=== PATIENT | female | born 1975 | race African-American/Black ===

== ENCOUNTER 2016-09-06 21:00 | Inpatient (IN) | payer MEDICAID ==
[~2016-09-06] VITALS: Ht 172.7 cm; Wt 96.6 kg
[2016-09-06 22:35] LABS: Basophils # (auto) 0.1 uL; Basophils % (auto) 0.6 % (0.0-2.0); Eosinophils # (auto) 0.1 uL; Eosinophils % (auto) 0.9 % (0.0-7.0); Hematocrit 34.7 % (36.0-46.0); Hemoglobin 11.7 g/dL (12.2-16.2); Lymphocytes # (auto) 2.8 uL; Lymphocytes % (auto) 31.4 % (10.0-50.0); Mean Corpuscular Hemoglobin 27.3 pg (28.0-32.0); Mean Corpuscular Hgb Conc. 33.6 g/dL (32.0-36.0); Mean Corpuscular Volume 81.3 fL (80.0-100.0); Mean Platelet Volume 8.2 fL (7.4-10.4); Monocytes # (auto) 0.6 uL; Monocytes % (auto) 6.3 % (0.0-12.0); Neutrophils # (auto) 5.4 uL; Neutrophils % (auto) 60.8 % (37.0-80.0); Platelet Count (auto) 279 10^3/uL (140-450); Red Cell Distribution Width 15.8 % (11.6-16.0); White Blood Cell 8.9 10^3/uL (4.4-10.8)
[2016-09-06 22:36] LABS: Urine Bilirubin Negative (Negative); Urine Blood Negative /uL (Negative); Urine Color Yellow (Yellow); Urine Glucose Normal (Normal); Urine Ketone Negative (Negative); Urine Nitrite Negative (Negative); Urine RBC 2 /hpf (0 - 4); Urine Squamous Epithelial Cell FEW /hpf (<5); Urine Urobilinogen Normal (Negative)
[2016-09-06 22:54] LABS: Albumin 3.3 g/dL (3.4-5.0); BUN/Creatinine Ratio 31.6; Bilirubin, Total 0.2 mg/dL (0.2-1.0); Calcium 8.6 mg/dL (8.5-10.1); Potassium 3.6 mmol/L (3.5-5.1); Total Protein 7.7 g/dL (6.4-8.2)
[2016-09-07] MEDS ORDERED: SODIUM CHLORIDE 0.9% 1,000 ML IV ONE (02:28)
[2016-09-07 02:55] LABS: INR 0.95 (0.9-1.15); Partial Thromboplastin Time 27.5 sec (22.64-33.71); Prothrombin Time 10.4 sec (9.37-12.3)
[2016-09-07] MEDS ORDERED: fentaNYL CITRATE 100 MCG/2 ML VL ONE (13:53)
[2016-09-07] MEDS ORDERED: ONDANSETRON HCL 4 MG/2 ML VIAL ONE ×3 (13:54→16:43)
[2016-09-07] MEDS ORDERED: MIDAZOLAM HCL 1MG/1ML-2 ML VIAL ONE (13:54)
[2016-09-07] MEDS ORDERED: GLYCOPYRROLATE 0.2 MG/ML 1ML VIAL ONE (13:54)
[2016-09-07] MEDS ORDERED: PROPOFOL 10 MG/ML 20 ML IV ONE (13:54)
[2016-09-07] MEDS ORDERED: DEXAMETHASONE SOD PHOS 10MG/1ML VIAL INJ ONE (13:54)
[2016-09-07] MEDS ORDERED: KETOROLAC TROMETH 60MG/2ML VIAL IM ONE (13:54)
[2016-09-07] MEDS ORDERED: ROCURONIUM 10MG/ML 10ML VIAL IV ONE ×3 (13:59→15:40)
[2016-09-07] MEDS ORDERED: ceFAZolin 1GM/50ML D5W 50 ML IV ONE (14:24)
[2016-09-07] MEDS ORDERED: ONDANSETRON HCL 4 MG/2 ML VIAL IV ONE (16:00)
[2016-09-07] MEDS ORDERED: HYDROmorphone HCL 2 MG/ML VL IM PRN (16:15)
[2016-09-07] MEDS ORDERED: RHO (D) IMMUNE GLOBULIN 300 MCG INJ IM PRN (16:15)
[2016-09-07] MEDS ORDERED: HYDROmorphone HCL 2 MG/ML VL ONE (16:41)
[2016-09-07] MEDS: HYDROmorphone HCL 2 MG/ML VL IV PRN ×2 (16:55→17:56)
[2016-09-07 17:26] VITALS: BP 96/52
[2016-09-07 17:36] VITALS: BP_SYST 101
[2016-09-07 20:00] VITALS: BP 96/58
[2016-09-07 21:59] VITALS: BP 96/58
[2016-09-08] MEDS: ONDANSETRON HCL 4 MG/2 ML VIAL IV PRN ×3 (04:58→14:38)
[2016-09-08] MEDS: HYDROmorphone HCL 2 MG/ML VL IV PRN ×2 (04:59→10:35)
[2016-09-08 05:00] VITALS: BP 98/56
[2016-09-08 07:33] LABS: Urine RBC None Seen /hpf (0 - 4)
[2016-09-08 07:47] LABS: Urine Bilirubin Negative (Negative); Urine Blood Negative /uL (Negative); Urine Color Yellow (Yellow); Urine Glucose Normal (Normal); Urine Ketone Negative (Negative); Urine Nitrite Negative (Negative); Urine Squamous Epithelial Cell FEW /hpf (<5); Urine Urobilinogen Normal (Negative)
[2016-09-08 08:00] VITALS: BP 117/60
[2016-09-08 09:00] VITALS: BP 117/60
[2016-09-08 12:27] VITALS: BP 111/63
== END 2016-09-08 15:41 | disposition home or self-care (01) | DRG 546 ==
LOC: ER 21:09 → WEST WING 21:10 → ER 09-07 14:36
PROVIDERS: ADMIT Internal Medicine; ATTEND Internal Medicine
PROC: 0UB04ZZ Excision of Right Ovary, Percutaneous Endoscopic Approach (ICD-10-PCS; 2016-09-07)
PROC: 0U9 Female Reproductive System, Drainage (ICD-10-PCS; 2016-09-07)
PROC: 0UB54ZZ Excision of Right Fallopian Tube, Percutaneous Endoscopic Approach (ICD-10-PCS; principal; 2016-09-07 14:08)
DX: O26.891 Other specified pregnancy related conditions, first trimester (principal); O00.90 Unspecified ectopic pregnancy without intrauterine pregnancy; D64.9 Anemia, unspecified; J45.909 Unspecified asthma, uncomplicated; Z90.49 Acquired absence of other specified parts of digestive tract; Z88.2 Allergy status to sulfonamides; Z90.89 Acquired absence of other organs; O99.011 Anemia complicating pregnancy, first trimester; O99.511 Diseases of the respiratory system complicating pregnancy, first trimester; Z3A.01 Less than 8 weeks gestation of pregnancy; N83.8 Other noninflammatory disorders of ovary, fallopian tube and broad ligament
CPT/HCPCS: 36415; 76801; 80053; 81001; 83690; 83735; 84702; 85025; 85610; 85730; 86850; 86900; 86901; 93005; 96360; J0690; J1100; J1885; J2250; J2405; J2704

== ENCOUNTER 2016-12-13 05:44 | Emergency (ER) | payer MEDICAID ==
[~2016-12-13] VITALS: Ht 172.7 cm; Wt 95.3 kg
[2016-12-13 06:09] VITALS: BP 101/60
[2016-12-13 07:25] LABS: Basophils # (auto) 0 uL; Basophils % (auto) 0.3 % (0.0-2.0); CONDITION Y; Eosinophils # (auto) 0.1 uL; Eosinophils % (auto) 1.2 % (0.0-7.0); Hematocrit 31.3 % (36.0-46.0); Hemoglobin 10.5 g/dL (12.2-16.2); Lymphocytes % (auto) 24.9 % (10.0-50.0); Mean Corpuscular Hemoglobin 27.8 pg (28.0-32.0); Mean Corpuscular Hgb Conc. 33.5 g/dL (32.0-36.0); Mean Corpuscular Volume 83.2 fL (80.0-100.0); Mean Platelet Volume 8.5 fL (7.4-10.4); Monocytes # (auto) 0.5 uL; Monocytes % (auto) 6.8 % (0.0-12.0); Neutrophils # (auto) 5.2 uL; Neutrophils % (auto) 66.8 % (37.0-80.0); Platelet Count (auto) 266 10^3/uL (140-450); Red Cell Distribution Width 14.3 % (11.6-16.0); White Blood Cell 7.9 10^3/uL (4.4-10.8)
[2016-12-13 07:26] LABS: Albumin 2.4 g/dL (3.4-5.0); Calcium 7.9 mg/dL (8.5-10.1); Potassium 3.5 mmol/L (3.5-5.1)
[2016-12-13 07:29] LABS: Bilirubin, Total 0.2 mg/dL (0.2-1.0); Total Protein 6.9 g/dL (6.4-8.2)
[2016-12-13] MEDS ORDERED: ACETAMINOPHEN 500 MG TAB PO ONE (09:45)
== END 2016-12-13 09:50 | disposition home or self-care (01) ==
LOC: ER 05:44
DX: O23.42 Unspecified infection of urinary tract in pregnancy, second trimester (principal); O26.892 Other specified pregnancy related conditions, second trimester; J45.909 Unspecified asthma, uncomplicated; Z3A.18 18 weeks gestation of pregnancy; Z88.1 Allergy status to other antibiotic agents
CPT/HCPCS: 36415; 76805; 80053; 83690; 83735; 84702; 85025

== ENCOUNTER 2017-01-14 18:57 | Emergency (ER) | payer MEDICAID ==
[~2017-01-14] VITALS: Ht 172.7 cm; Wt 94.8 kg
[2017-01-14 19:56] LABS: Basophils # (auto) 0 uL; Basophils % (auto) 0.5 % (0.0-2.0); Eosinophils # (auto) 0.1 uL; Hematocrit 32.3 % (36.0-46.0); Hemoglobin 10.6 g/dL (12.2-16.2); Lymphocytes # (auto) 2.9 uL; Lymphocytes % (auto) 29.2 % (10.0-50.0); Mean Corpuscular Hemoglobin 27.1 pg (28.0-32.0); Mean Corpuscular Volume 82.2 fL (80.0-100.0); Mean Platelet Volume 8.2 fL (6.9-10.8); Monocytes # (auto) 0.7 uL; Monocytes % (auto) 6.6 % (0.0-12.0); Neutrophils # (auto) 6.2 uL; Neutrophils % (auto) 62.7 % (37.0-80.0); Nucleated Red Blood Cells % 0.1 %; Platelet Count (auto) 227 10^3/uL (140-450); Red Cell Distribution Width 14.6 % (11.8-14.3); White Blood Cell 9.9 10^3/uL (4.4-10.8)
[2017-01-14 20:00] LABS: Albumin 2.6 g/dL (3.4-5.0); BUN/Creatinine Ratio 18.9; Bilirubin, Total 0.2 mg/dL (0.2-1.0); Potassium 3.4 mmol/L (3.5-5.1); Total Protein 7.2 g/dL (6.4-8.2)
[2017-01-14] MEDS ORDERED: ACETAMINOPHEN 325 MG TAB PO ONE (21:30)
[2017-01-15 00:55] VITALS: BP 112/68
== END 2017-01-15 02:47 | disposition home or self-care (01) ==
LOC: ER 19:03
DX: O9A.212 Injury, poisoning and certain other consequences of external causes complicating pregnancy, second trimester (principal); S33.5XXA Sprain of ligaments of lumbar spine, initial encounter; O26.892 Other specified pregnancy related conditions, second trimester; J45.909 Unspecified asthma, uncomplicated; M79.1 Myalgia; Z3A.25 25 weeks gestation of pregnancy; Z88.1 Allergy status to other antibiotic agents; W18.39XA Other fall on same level, initial encounter; Y93.89 Activity, other specified; Y92.89 Other specified places as the place of occurrence of the external cause; Y99.8 Other external cause status
CPT/HCPCS: 36415; 76805; 80053; 84702; 85025

== ENCOUNTER 2017-03-17 11:05 | Observation (INO) | payer MEDICAID ==
[~2017-03-17] VITALS: Ht 172.7 cm; Wt 98.4 kg
[2017-03-17] MEDS ORDERED: NIFEdipine 10 MG CAP PO ONE (13:00)
[2017-03-17] MEDS ORDERED: PREN-96 PO (14:47)
[2017-03-17] MEDS ORDERED: NIF10C PO (15:18)
== END 2017-03-17 16:00 | disposition home or self-care (01) | DRG 566 ==
LOC: LDRP 11:05
PROVIDERS: ADMIT Obstetrics & Gynecology; ATTEND Obstetrics & Gynecology
DX: O26.893 Other specified pregnancy related conditions, third trimester (principal); R51 Headache; R10.9 Unspecified abdominal pain; Z3A.32 32 weeks gestation of pregnancy
CPT/HCPCS: 59025; 81002; 96361; 96366; G0378

== ENCOUNTER 2017-03-19 16:00 | Observation (INO) | payer MEDICAID ==
[~2017-03-19 16:00] MED LIST: NIF10C PO; PREN-96 PO
== END 2017-03-19 17:05 | disposition home or self-care (01) | DRG 563 ==
LOC: LDRP 16:00
PROVIDERS: ADMIT Specialist; ATTEND Specialist
DX: O60.03 Preterm labor without delivery, third trimester (principal); O26.893 Other specified pregnancy related conditions, third trimester; R10.30 Lower abdominal pain, unspecified; Z3A.32 32 weeks gestation of pregnancy
CPT/HCPCS: 59025; 81002; G0378

== ENCOUNTER 2017-03-26 17:00 | Observation (INO) | payer MEDICAID, OTHER ==
[2017-03-26] MEDS ORDERED: TERBUTALINE SULFATE 1 MG/ML 1ML VIAL SC ONE (18:51)
== END 2017-03-26 22:54 | disposition home or self-care (01) | DRG 566 ==
LOC: LDRP 17:00 → EDUNIT# 17:00
PROVIDERS: ADMIT Obstetrics & Gynecology; ATTEND Obstetrics & Gynecology
DX: O26.893 Other specified pregnancy related conditions, third trimester (principal); Z3A.33 33 weeks gestation of pregnancy
CPT/HCPCS: 59025; 81002; 96372; G0378; J3105

== ENCOUNTER 2017-04-02 18:55 | Observation (INO) | payer MEDICAID ==
[2017-04-02] MEDS ORDERED: NIFEdipine 10 MG CAP ONE (19:16)
== END 2017-04-02 20:34 | disposition home or self-care (01) | DRG 566 ==
LOC: LDRP 18:55
PROVIDERS: ADMIT Specialist; ATTEND Specialist
DX: O26.93 Pregnancy related conditions, unspecified, third trimester (principal); Z3A.34 34 weeks gestation of pregnancy
CPT/HCPCS: 59025; 81002; G0378

== ENCOUNTER 2017-04-08 10:50 | Observation (INO) | payer MEDICAID | END 2017-04-08 11:40 | disposition home or self-care (01) | DRG 563 | LOC: LDRP 10:50 | PROVIDERS: ADMIT Specialist; ATTEND Specialist | DX: O60.03 Preterm labor without delivery, third trimester (principal); Z3A.35 35 weeks gestation of pregnancy | CPT/HCPCS: 59025; 81002; G0378 ==

== ENCOUNTER 2017-04-16 11:05 | Observation (INO) | payer MEDICAID | END 2017-04-16 11:50 | disposition home or self-care (01) | DRG 563 | LOC: LDRP 11:05 | PROVIDERS: ADMIT Specialist; ATTEND Specialist | DX: O60.03 Preterm labor without delivery, third trimester (principal); O26.893 Other specified pregnancy related conditions, third trimester; R10.9 Unspecified abdominal pain; M54.5 Low back pain; O09.523 Supervision of elderly multigravida, third trimester; Z3A.36 36 weeks gestation of pregnancy | CPT/HCPCS: 59025; 81002; G0378 ==

== ENCOUNTER 2017-04-23 10:50 | Observation (INO) | payer MEDICAID | END 2017-04-23 12:05 | disposition home or self-care (01) | DRG 566 | LOC: LDRP 10:50 | PROVIDERS: ADMIT Obstetrics & Gynecology; ATTEND Obstetrics & Gynecology | DX: O26.893 Other specified pregnancy related conditions, third trimester (principal); M54.5 Low back pain; R10.30 Lower abdominal pain, unspecified; Z3A.37 37 weeks gestation of pregnancy | CPT/HCPCS: 59025; 81002; G0378 ==

== ENCOUNTER 2017-04-30 11:30 | Observation (INO) | payer MEDICAID | END 2017-04-30 13:15 | disposition home or self-care (01) | DRG 566 | LOC: LDRP 11:30 | PROVIDERS: ADMIT Obstetrics & Gynecology; ATTEND Obstetrics & Gynecology | DX: O24.419 Gestational diabetes mellitus in pregnancy, unspecified control (principal); O62.9 Abnormality of forces of labor, unspecified; Z3A.38 38 weeks gestation of pregnancy | CPT/HCPCS: 59025; 81002; G0378; 96361; 96366 ==

== ENCOUNTER 2017-05-02 02:25 | Inpatient (IN) | payer MEDICAID ==
[~2017-05-02] VITALS: Ht 172.7 cm; Wt 96.8 kg
[2017-05-02] VITALS (11 sets, daily range): BP systolic 81–107; BP diastolic 45–60
[~2017-05-02 02:25] MED LIST changes: -NIF10C PO
[2017-05-02 03:18] LABS: Basophils # (auto) 0.1 uL; Eosinophils # (auto) 0.1 uL; Eosinophils % (auto) 0.8 % (0.0-7.0); Hemoglobin 9.6 g/dL (12.2-16.2); Lymphocytes # (auto) 2.5 uL; Mean Corpuscular Volume 79.4 fL (80.0-100.0); Monocytes # (auto) 0.6 uL; White Blood Cell 7.2 10^3/uL (4.4-10.8)
[2017-05-02 03:19] LABS: Basophils % (auto) 0.8 % (0.0-2.0); Hematocrit 29.2 % (36.0-46.0); Lymphocytes % (auto) 34.4 % (10.0-50.0); Mean Corpuscular Hemoglobin 26.1 pg (28.0-32.0); Mean Corpuscular Hgb Conc. 32.8 g/dL (32.0-36.0); Monocytes % (auto) 7.9 % (0.0-12.0); Neutrophils % (auto) 56.1 % (37.0-80.0); Platelet Count (auto) 225 10^3/uL (140-450); Red Blood Cells 3.68 10^6/uL (4.0-5.20); Red Cell Distribution Width 16.9 % (11.8-14.3)
[2017-05-02] MEDS ORDERED: FERR-7 PO (03:26)
[2017-05-02 03:37] LABS: Albumin 2.3 g/dL (3.4-5.0); BUN/Creatinine Ratio 23.6; Calcium 8.4 mg/dL (8.5-10.1)
[2017-05-02 03:37] LABS: Urine WBC None Seen /hpf (0 - 5)
[2017-05-02 03:40] LABS: Bilirubin, Total 0.2 mg/dL (0.2-1.0); Total Protein 6.5 g/dL (6.4-8.2)
[2017-05-02 03:47] LABS: Urine Bacteria NONE SEEN /hpf (None Seen); Urine Blood 2+ /uL (Negative); Urine Specific Gravity 1.022 (1.001-1.035)
[2017-05-02] MEDS ORDERED: MORPHINE SULF(PF) 0.5MG/ML 10ML VIAL ONE (03:56)
[2017-05-02] MEDS ORDERED: fentaNYL CITRATE 100 MCG/2 ML VL ONE (03:57)
[2017-05-02] MEDS ORDERED: MIDAZOLAM HCL 1MG/1ML-2 ML VIAL ONE (03:57)
[2017-05-02] MEDS ORDERED: TETRACAINE 1% INJ 2 ML VIAL IJ ONE (03:58)
[2017-05-02] MEDS ORDERED: ceFAZolin 1GM VL ONE (04:00)
[2017-05-02] MEDS ORDERED: OXYTOCIN 10 UNIT/ML 10ML VIAL ONE (04:00)
[2017-05-02] MEDS ORDERED: HYDROmorphone HCL 2 MG/ML VL IV PRN ×2 (04:30→05:45)
[2017-05-02] MEDS ORDERED: DEXAMETHASONE SOD PHOS 10MG/1ML VIAL INJ IV PRN (04:30)
[2017-05-02] MEDS ORDERED: diphenhdrAMINE HCL 50 MG/1 ML VL IV PRN (04:30)
[2017-05-02] MEDS ORDERED: NALBUPHINE HCL 10 MG/1ml INJECTION SUBCUT ONE (04:30)
[2017-05-02] MEDS ORDERED: KETOROLAC TROMETH 30 MG/ML 1ML VIAL IV PRN (04:30)
[2017-05-02] MEDS ORDERED: NALOXONE HCL 0.4 MG/ML VIAL IV PRN (04:30)
[2017-05-02] MEDS ORDERED: ONDANSETRON HCL 4 MG/2 ML VIAL IV PRN ×2 (04:30→05:45)
[2017-05-02] MEDS ORDERED: PHENYLEPHRINE HCL 10 MG/ML VL ONE (05:04)
[2017-05-02 05:09] LABS: INR 0.9 (0.9-1.15); Partial Thromboplastin Time 28.7 sec (22.64-33.71); Prothrombin Time 9.8 sec (9.37-12.3)
[2017-05-02] MEDS ORDERED: ceFAZolin 1GM/50ML 50 ML IV SCH (05:45)
[2017-05-02] MEDS: KETOROLAC TROMETH 30 MG/ML 1ML VIAL IV SCH ×4 (06:00→18:30)
[2017-05-02] MEDS: LACTATED RINGER'S 1,000 ML IV SCH ×6 (06:30→20:36)
[2017-05-02] MEDS: ePHEDrine SULFATE 50 MG/ML AMP IV PRN ×4 (07:20→07:50)
[2017-05-02 08:00] LABS: Basophils # (auto) 0 uL; Basophils % (auto) 0.2 % (0.0-2.0); Eosinophils # (auto) 0 uL; Eosinophils % (auto) 0.2 % (0.0-7.0); Lymphocytes # (auto) 1.9 uL
[2017-05-02 08:02] LABS: Hematocrit 24.8 % (36.0-46.0); Hemoglobin 8.2 g/dL (12.2-16.2); Mean Corpuscular Hemoglobin 26.6 pg (28.0-32.0); Mean Corpuscular Hgb Conc. 33.3 g/dL (32.0-36.0); Monocytes # (auto) 0.4 uL; Monocytes % (auto) 3.9 % (0.0-12.0); Neutrophils # (auto) 8.3 uL; Neutrophils % (auto) 77.7 % (37.0-80.0); Platelet Count (auto) 195 10^3/uL (140-450); Red Blood Cells 3.09 10^6/uL (4.0-5.20); Red Cell Distribution Width 16.9 % (11.8-14.3); White Blood Cell 10.6 10^3/uL (4.4-10.8)
[2017-05-02] MEDS ORDERED: OXYTOCIN 10UNIT/ML 1ML VIAL ONE (08:31)
[2017-05-02 09:48] LABS: Basophils # (auto) 0 uL; Eosinophils # (auto) 0 uL; Eosinophils % (auto) 0.1 % (0.0-7.0); Monocytes # (auto) 0.7 uL; Monocytes % (auto) 5.3 % (0.0-12.0); Neutrophils # (auto) 9.8 uL; Red Blood Cells 3.45 10^6/uL (4.0-5.20)
[2017-05-02 09:50] LABS: Basophils % (auto) 0.4 % (0.0-2.0); Hemoglobin 9.3 g/dL (12.2-16.2); Mean Corpuscular Hemoglobin 26.9 pg (28.0-32.0); Mean Corpuscular Volume 81.3 fL (80.0-100.0); Neutrophils % (auto) 78.2 % (37.0-80.0); Platelet Count (auto) 188 10^3/uL (140-450); Red Cell Distribution Width 16.6 % (11.8-14.3); White Blood Cell 12.6 10^3/uL (4.4-10.8)
[2017-05-02 13:47] LABS: Basophils # (auto) 0 uL; Basophils % (auto) 0.2 % (0.0-2.0); Eosinophils # (auto) 0 uL; Eosinophils % (auto) 0.1 % (0.0-7.0); Hematocrit 31.5 % (36.0-46.0); Hemoglobin 10.4 g/dL (12.2-16.2); Lymphocytes # (auto) 2.1 uL; Lymphocytes % (auto) 19.8 % (10.0-50.0); Mean Corpuscular Hemoglobin 27.2 pg (28.0-32.0); Mean Corpuscular Volume 82.5 fL (80.0-100.0); Monocytes # (auto) 0.5 uL; Monocytes % (auto) 5.1 % (0.0-12.0); Neutrophils # (auto) 7.8 uL; Neutrophils % (auto) 74.8 % (37.0-80.0); Platelet Count (auto) 170 10^3/uL (140-450); Red Blood Cells 3.81 10^6/uL (4.0-5.20); Red Cell Distribution Width 17.1 % (11.8-14.3); White Blood Cell 10.5 10^3/uL (4.4-10.8)
[2017-05-02] MEDS: ceFAZolin 1GM/50ML 50 ML IV SCH ×2 (14:00→22:12)
[2017-05-02 19:38] LABS: Hematocrit 29.1 % (36.0-46.0); Hemoglobin 9.9 g/dL (12.2-16.2)
[2017-05-03] VITALS (15 sets, daily range): BP systolic 86–117; BP diastolic 48–72
[2017-05-03] MEDS: KETOROLAC TROMETH 30 MG/ML 1ML VIAL IV SCH ×2 (00:26→05:58)
[2017-05-03 01:11] LABS: Hematocrit 26.7 % (36.0-46.0); Hemoglobin 8.9 g/dL (12.2-16.2)
[2017-05-03] MEDS: ceFAZolin 1GM/50ML 50 ML IV SCH (05:51)
[2017-05-03] MEDS ORDERED: BISACODYL 10 MG RECT SUPP PR PRN (07:30)
[2017-05-03] MEDS ORDERED: IBUPROFEN 800 MG TAB PO PRN (07:30)
[2017-05-03] MEDS: SIMETHICONE 80 MG CHEWABLE TABLET PO SCH ×4 (08:00→21:44)
[2017-05-03 08:05] LABS: Basophils # (auto) 0 uL; Basophils % (auto) 0.2 % (0.0-2.0); Eosinophils # (auto) 0.1 uL; Eosinophils % (auto) 0.8 % (0.0-7.0); Hematocrit 27.9 % (36.0-46.0); Hemoglobin 9.4 g/dL (12.2-16.2); Lymphocytes # (auto) 0.7 uL; Lymphocytes % (auto) 9.3 % (10.0-50.0); Mean Corpuscular Hemoglobin 27.2 pg (28.0-32.0); Mean Corpuscular Hgb Conc. 33.7 g/dL (32.0-36.0); Mean Corpuscular Volume 80.5 fL (80.0-100.0); Monocytes # (auto) 0.4 uL; Monocytes % (auto) 5.4 % (0.0-12.0); Neutrophils # (auto) 6.7 uL; Neutrophils % (auto) 84.3 % (37.0-80.0); Platelet Count (auto) 128 10^3/uL (140-450); Red Blood Cells 3.47 10^6/uL (4.0-5.20); Red Cell Distribution Width 16.8 % (11.8-14.3)
[2017-05-03] MEDS: HYDROcodone-ACET 5/325MG TAB PO PRN ×3 (08:37→17:30)
[2017-05-03] MEDS ORDERED: AMMONIA 0.33 ML INHALANT IN ONE (09:43)
[2017-05-03] MEDS ORDERED: ALBUTEROL SULF 2.5 MG/0.5ML(0.5%) NEB SOLN NEB PRN (11:30)
[2017-05-03] MEDS: FERROUS SULFATE 325 MG TAB PO SCH ×2 (11:59→21:44)
[2017-05-03] MEDS: DOCUSATE SOD 100 MG CAP PO SCH ×2 (12:00→21:44)
[2017-05-03] MEDS: DOCUSATE CALCIUM 240 MG CAP PO SCH (12:00)
[2017-05-03] MEDS ORDERED: POTASSIUM CHL 10 Meq TABLET PO ONE (12:30)
[2017-05-03] MEDS ORDERED: FUROSEMIDE 20 MG/2 ML VIAL IV ONE (12:30)
[2017-05-03] MEDS ORDERED: ALBUTEROL SULF 2.5 MG/0.5ML(0.5%) NEB SOLN ONE (13:14)
[2017-05-03] MEDS ORDERED: IOHEXOL 350 MG/ML 100ML IJ ONE (16:00)
[2017-05-03 16:39] LABS: BUN/Creatinine Ratio 16.9; Calcium 7.9 mg/dL (8.5-10.1); Potassium 3.9 mmol/L (3.5-5.1)
[2017-05-03] MEDS: ENOXAPARIN SOD 100 MG/1 ML SYRINGE SC SCH (17:24)
[2017-05-03] MEDS ORDERED: MORPHINE SULFATE 10 MG/ML INJ 1ML SDV IV PRN (17:45)
[2017-05-03] MEDS: SODIUM CHLOR 0.9% PF (SALINE LOCK) 10ML VIAL IV SCH ×2 (18:56→21:44)
[2017-05-04] VITALS: BP 111/65
[2017-05-04] MEDS: HYDROcodone-ACET 5/325MG TAB PO PRN ×4 (03:32→21:51)
[2017-05-04 04:00] VITALS: BP 109/62
[2017-05-04] MEDS: SODIUM CHLOR 0.9% PF (SALINE LOCK) 10ML VIAL IV SCH ×3 (06:21→21:47)
[2017-05-04] MEDS: SIMETHICONE 80 MG CHEWABLE TABLET PO SCH ×4 (06:21→21:47)
[2017-05-04] MEDS: ENOXAPARIN SOD 100 MG/1 ML SYRINGE SC SCH ×2 (06:21→17:52)
[2017-05-04 07:00] LABS: Basophils # (auto) 0 uL; Basophils % (auto) 0.2 % (0.0-2.0); Eosinophils # (auto) 0.1 uL; Eosinophils % (auto) 1.9 % (0.0-7.0); Hematocrit 32.7 % (36.0-46.0); Hemoglobin 11.1 g/dL (12.2-16.2); Lymphocytes # (auto) 0.8 uL; Lymphocytes % (auto) 12.2 % (10.0-50.0); Mean Corpuscular Hemoglobin 27.3 pg (28.0-32.0); Mean Corpuscular Hgb Conc. 33.8 g/dL (32.0-36.0); Mean Corpuscular Volume 80.6 fL (80.0-100.0); Monocytes # (auto) 0.5 uL; Monocytes % (auto) 7.5 % (0.0-12.0); Neutrophils # (auto) 5.2 uL; Neutrophils % (auto) 78.2 % (37.0-80.0); Nucleated Red Blood Cells % 0.1 %; Platelet Count (auto) 144 10^3/uL (140-450); Red Blood Cells 4.06 10^6/uL (4.0-5.20); Red Cell Distribution Width 17.2 % (11.8-14.3); White Blood Cell 6.6 10^3/uL (4.4-10.8)
[2017-05-04 07:08] LABS: BUN/Creatinine Ratio 14.9; Calcium 7.6 mg/dL (8.5-10.1); Potassium 3.8 mmol/L (3.5-5.1)
[2017-05-04 08:00] VITALS: BP 122/78
[2017-05-04 08:26] LABS: INR 0.97 (0.9-1.15); Partial Thromboplastin Time 41.1 sec (22.64-33.71); Prothrombin Time 10.6 sec (9.37-12.3)
[2017-05-04] MEDS: FERROUS SULFATE 325 MG TAB PO SCH ×2 (10:25→21:47)
[2017-05-04] MEDS: DOCUSATE SOD 100 MG CAP PO SCH ×2 (10:25→21:47)
[2017-05-04] MEDS: DOCUSATE CALCIUM 240 MG CAP PO SCH (10:25)
[2017-05-04 11:50] VITALS: BP 114/63
[2017-05-04 15:50] VITALS: BP 119/67
[2017-05-04] MEDS ORDERED: WARFARIN SODIUM 2.5 MG TAB PO ONE (17:00)
[2017-05-04 19:52] VITALS: BP 118/74
[2017-05-05] VITALS: BP 119/64
[2017-05-05 04:00] VITALS: BP 110/62
[2017-05-05 05:23] LABS: INR 0.96 (0.9-1.15); Partial Thromboplastin Time 40.8 sec (22.64-33.71); Prothrombin Time 10.5 sec (9.37-12.3)
[2017-05-05 05:24] LABS: Basophils # (auto) 0 uL; Basophils % (auto) 0.2 % (0.0-2.0); Eosinophils # (auto) 0.2 uL; Eosinophils % (auto) 2.7 % (0.0-7.0); Hematocrit 28.4 % (36.0-46.0); Hemoglobin 9.6 g/dL (12.2-16.2); Lymphocytes # (auto) 1.8 uL; Lymphocytes % (auto) 28.4 % (10.0-50.0); Mean Corpuscular Hemoglobin 27.5 pg (28.0-32.0); Mean Corpuscular Hgb Conc. 33.8 g/dL (32.0-36.0); Mean Corpuscular Volume 81.3 fL (80.0-100.0); Monocytes # (auto) 0.6 uL; Monocytes % (auto) 9.7 % (0.0-12.0); Neutrophils # (auto) 3.8 uL; Nucleated Red Blood Cells % 0.1 %; Platelet Count (auto) 133 10^3/uL (140-450); Red Cell Distribution Width 17.7 % (11.8-14.3); White Blood Cell 6.5 10^3/uL (4.4-10.8)
[2017-05-05] MEDS: ENOXAPARIN SOD 100 MG/1 ML SYRINGE SC SCH ×2 (06:40→17:37)
[2017-05-05] MEDS: SIMETHICONE 80 MG CHEWABLE TABLET PO SCH ×4 (06:40→21:26)
[2017-05-05] MEDS: SODIUM CHLOR 0.9% PF (SALINE LOCK) 10ML VIAL IV SCH ×3 (06:41→21:27)
[2017-05-05] MEDS: HYDROcodone-ACET 5/325MG TAB PO PRN ×3 (08:20→17:08)
[2017-05-05] MEDS: DOCUSATE SOD 100 MG CAP PO SCH ×2 (10:00→21:26)
[2017-05-05] MEDS: DOCUSATE CALCIUM 240 MG CAP PO SCH (10:00)
[2017-05-05] MEDS: FERROUS SULFATE 325 MG TAB PO SCH ×2 (10:00→21:26)
[2017-05-05 12:00] VITALS: BP 122/75
[2017-05-05 15:57] VITALS: BP 119/71
[2017-05-05] MEDS ORDERED: WARFARIN SODIUM 2.5 MG TAB PO ONE (17:00)
[2017-05-05 19:50] VITALS: BP 122/82
[2017-05-06] VITALS (9 sets, daily range): BP systolic 103–135; BP diastolic 59–80
[2017-05-06] MEDS: HYDROcodone-ACET 5/325MG TAB PO PRN ×2 (03:22→11:10)
[2017-05-06 05:36] LABS: Basophils # (auto) 0 uL; Basophils % (auto) 0.4 % (0.0-2.0); Eosinophils # (auto) 0.2 uL; Eosinophils % (auto) 2.8 % (0.0-7.0); Hematocrit 29.2 % (36.0-46.0); Lymphocytes # (auto) 1.8 uL; Lymphocytes % (auto) 27.7 % (10.0-50.0); Mean Corpuscular Hemoglobin 27.6 pg (28.0-32.0); Mean Corpuscular Hgb Conc. 34.3 g/dL (32.0-36.0); Mean Corpuscular Volume 80.5 fL (80.0-100.0); Monocytes # (auto) 0.6 uL; Monocytes % (auto) 8.6 % (0.0-12.0); Neutrophils % (auto) 60.5 % (37.0-80.0); Nucleated Red Blood Cells % 0.1 %; Platelet Count (auto) 164 10^3/uL (140-450); Red Blood Cells 3.63 10^6/uL (4.0-5.20); Red Cell Distribution Width 17.7 % (11.8-14.3); White Blood Cell 6.6 10^3/uL (4.4-10.8)
[2017-05-06 05:50] LABS: INR 1.16 (0.9-1.15); Partial Thromboplastin Time 41.1 sec (22.64-33.71); Prothrombin Time 12.7 sec (9.37-12.3)
[2017-05-06] MEDS: ENOXAPARIN SOD 100 MG/1 ML SYRINGE SC SCH ×2 (06:13→17:35)
[2017-05-06] MEDS: SODIUM CHLOR 0.9% PF (SALINE LOCK) 10ML VIAL IV SCH ×3 (06:13→22:16)
[2017-05-06] MEDS: SIMETHICONE 80 MG CHEWABLE TABLET PO SCH ×4 (06:13→22:15)
[2017-05-06] MEDS: DOCUSATE CALCIUM 240 MG CAP PO SCH (10:20)
[2017-05-06] MEDS: FERROUS SULFATE 325 MG TAB PO SCH ×2 (10:20→22:15)
[2017-05-06] MEDS: DOCUSATE SOD 100 MG CAP PO SCH ×2 (10:20→22:16)
[2017-05-06] MEDS ORDERED: WARFARIN SODIUM 2.5 MG TAB PO ONE (17:00)
[2017-05-06] MEDS: NITROGLYCERIN 0.4 MG SL TAB SL PRN ×2 (19:14→20:49)
[2017-05-06] MEDS ORDERED: BISACODYL 5 MG EC TAB PO SCH (22:00)
[2017-05-06] MEDS: ACETAMINOPHEN 325 MG TAB PO PRN (22:16)
[2017-05-07 05:25] VITALS: BP 122/76
[2017-05-07] MEDS: ENOXAPARIN SOD 100 MG/1 ML SYRINGE SC SCH (06:28)
[2017-05-07] MEDS: ACETAMINOPHEN 325 MG TAB PO PRN (06:28)
[2017-05-07] MEDS: SIMETHICONE 80 MG CHEWABLE TABLET PO SCH ×2 (06:28→15:34)
[2017-05-07] MEDS: SODIUM CHLOR 0.9% PF (SALINE LOCK) 10ML VIAL IV SCH ×2 (06:28→15:34)
[2017-05-07 07:23] LABS: INR 1.68 (0.9-1.15); Partial Thromboplastin Time 44.8 sec (22.64-33.71); Prothrombin Time 18.4 sec (9.37-12.3)
[2017-05-07 07:28] LABS: Basophils # (auto) 0 uL; Basophils % (auto) 0.2 % (0.0-2.0); Eosinophils # (auto) 0.2 uL; Eosinophils % (auto) 3.4 % (0.0-7.0); Hemoglobin 10.4 g/dL (12.2-16.2); Lymphocytes % (auto) 30.6 % (10.0-50.0); Mean Corpuscular Hemoglobin 27.1 pg (28.0-32.0); Mean Corpuscular Hgb Conc. 33.5 g/dL (32.0-36.0); Mean Corpuscular Volume 80.9 fL (80.0-100.0); Monocytes # (auto) 0.4 uL; Neutrophils # (auto) 3.8 uL; Neutrophils % (auto) 58.8 % (37.0-80.0); Nucleated Red Blood Cells % 0.1 %; Platelet Count (auto) 181 10^3/uL (140-450); Red Blood Cells 3.83 10^6/uL (4.0-5.20); Red Cell Distribution Width 17.5 % (11.8-14.3); White Blood Cell 6.4 10^3/uL (4.4-10.8)
[2017-05-07 08:00] VITALS: BP 102/60
[2017-05-07 09:00] VITALS: BP 102/60
[2017-05-07] MEDS: FERROUS SULFATE 325 MG TAB PO SCH (10:55)
[2017-05-07] MEDS: DOCUSATE CALCIUM 240 MG CAP PO SCH (10:55)
[2017-05-07] MEDS: DOCUSATE SOD 100 MG CAP PO SCH (10:56)
[2017-05-07 13:01] VITALS: BP 123/75
[2017-05-07] MEDS ORDERED: WARFARIN SODIUM 2 MG TAB PO ONE (17:00)
== END 2017-05-07 16:05 | disposition home or self-care (01) | DRG 540 ==
LOC: LDRP 02:25 → DOU IN ICU 05-03 19:57 → TELE-WESTW 05-06 15:41
PROVIDERS: ADMIT Specialist; ATTEND Internal Medicine
PROC: 30233N1 Transfusion of Nonautologous Red Blood Cells into Peripheral Vein, Percutaneous Approach (ICD-10-PCS; 2017-05-02)
PROC: 10D00Z1 Extraction of Products of Conception, Low, Open Approach (ICD-10-PCS; principal; 2017-05-02 04:25)
DX: O34.211 Maternal care for low transverse scar from previous cesarean delivery (principal); J96.00 Acute respiratory failure, unspecified whether with hypoxia or hypercapnia; I26.99 Other pulmonary embolism without acute cor pulmonale; D68.59 Other primary thrombophilia; I95.9 Hypotension, unspecified; O22.33 Deep phlebothrombosis in pregnancy, third trimester; I82.403 Acute embolism and thrombosis of unspecified deep veins of lower extremity, bilateral; R71.0 Precipitous drop in hematocrit; O99.12 Other diseases of the blood and blood-forming organs and certain disorders involving the immune mechanism complicating childbirth; O99.52 Diseases of the respiratory system complicating childbirth; O99.284 Endocrine, nutritional and metabolic diseases complicating childbirth; O75.89 Other specified complications of labor and delivery; R07.81 Pleurodynia; E87.70 Fluid overload, unspecified; K66.0 Peritoneal adhesions (postprocedural) (postinfection); Z86.718 Personal history of other venous thrombosis and embolism; Z3A.38 38 weeks gestation of pregnancy; Z37.0 Single live birth; O42.92 Full-term premature rupture of membranes, unspecified as to length of time between rupture and onset of labor
CPT/HCPCS: 36415; 51702; 59025; 71045; 71275; 80048; 80053; 81001; 85014; 85018; 85025; 85610; 85730; 86850; 86900; 86901; 86920; 87081; 93005; 93970; 94640; 96365; 96366; 96372; 96374; 96375; J0690; J1885; J2250; J2405; J2590

== ENCOUNTER 2018-02-27 18:29 | Emergency (ER) | payer MEDICAID ==
[~2018-02-27] VITALS: Ht 172.7 cm; Wt 104.3 kg
[~2018-02-27 18:29] MED LIST changes: +FERR-7 PO
[2018-02-27 18:43] VITALS: BP 118/71
== END 2018-02-27 20:48 | disposition home or self-care (01) ==
LOC: ER 18:29
DX: M62.838 Other muscle spasm (principal); M54.2 Cervicalgia; M25.552 Pain in left hip; M54.9 Dorsalgia, unspecified; M25.562 Pain in left knee; M79.602 Pain in left arm; J45.909 Unspecified asthma, uncomplicated; Z88.2 Allergy status to sulfonamides; V59.49XA Driver of pick-up truck or van injured in collision with other motor vehicles in traffic accident, initial encounter; Y93.89 Activity, other specified; Y99.8 Other external cause status; Y92.410 Unspecified street and highway as the place of occurrence of the external cause
CPT/HCPCS: 72040; 72070; 73502

== ENCOUNTER 2018-09-13 04:04 | Emergency (ER) | payer MEDICAID ==
[~2018-09-13] VITALS: Ht 172.7 cm; Wt 99.8 kg
[2018-09-13 07:07] LABS: Basophils # (auto) 0.1 uL; Eosinophils # (auto) 0.1 uL; Eosinophils % (auto) 1.4 % (0.0-7.0); Hematocrit 39.3 % (36.0-46.0); Hemoglobin 12.8 g/dL (12.2-16.2); Lymphocytes # (auto) 2.6 uL; Lymphocytes % (auto) 33.5 % (10.0-50.0); Mean Corpuscular Hemoglobin 27.3 pg (28.0-32.0); Mean Corpuscular Hgb Conc. 32.6 g/dL (32.0-36.0); Mean Corpuscular Volume 83.9 fL (80.0-100.0); Monocytes # (auto) 0.4 uL; Monocytes % (auto) 5.3 % (0.0-12.0); Neutrophils # (auto) 4.5 uL; Neutrophils % (auto) 58.8 % (37.0-80.0); Platelet Count (auto) 288 10^3/uL (140-450); Red Blood Cells 4.68 10^6/uL (4.0-5.20); Red Cell Distribution Width 14.6 % (11.8-14.3); White Blood Cell 7.7 10^3/uL (4.4-10.8)
[2018-09-13 07:20] LABS: INR 1.16 (0.9-1.15); Partial Thromboplastin Time 28.7 sec (23.64-32.05)
[2018-09-13 07:29] LABS: Albumin 3.6 g/dL (3.4-5.0); BUN/Creatinine Ratio 22.5; Calcium 8.7 mg/dL (8.5-10.1); Potassium 3.8 mmol/L (3.5-5.1)
[2018-09-13 07:31] LABS: Bilirubin, Total 0.3 mg/dL (0.2-1.0); Total Protein 8.3 g/dL (6.4-8.2)
[2018-09-13 13:35] VITALS: BP 121/65
== END 2018-09-13 14:19 | disposition home or self-care (01) ==
LOC: ER 04:04
DX: M70.51 Other bursitis of knee, right knee (principal); M17.11 Unilateral primary osteoarthritis, right knee; J45.909 Unspecified asthma, uncomplicated; Z88.2 Allergy status to sulfonamides; Z90.89 Acquired absence of other organs
CPT/HCPCS: 36415; 73562; 73700; 80053; 85025; 85610; 85730

== ENCOUNTER 2018-10-04 02:26 | Emergency (ER) | payer MEDICAID ==
[~2018-10-04] VITALS: Ht 172.7 cm; Wt 97.5 kg
[2018-10-04 04:57] VITALS: BP 121/75
[2018-10-04] MEDS ORDERED: methylPREDNISolone SOD SUCC 125 MG/2 ML VL IM ONE (05:00)
[2018-10-04] MEDS ORDERED: cefTRIAXone SOD 1,000 MG VL IM ONE (05:00)
[2018-10-04] MEDS ORDERED: LIDOCAINE 1% HCL (LOCAL ANESTH.) INJ 20ML MDV ONE (05:23)
[2018-10-04] MEDS ORDERED: LIDOCAINE 1% HCL (LOCAL ANESTH.) INJ 20ML MDV IJ ONE (05:30)
== END 2018-10-04 05:54 | disposition home or self-care (01) ==
LOC: ER 02:26
DX: J06.9 Acute upper respiratory infection, unspecified (principal); G43.909 Migraine, unspecified, not intractable, without status migrainosus; J45.909 Unspecified asthma, uncomplicated; Z88.2 Allergy status to sulfonamides
CPT/HCPCS: 96372; 99283; J0696; J2001; J2930